=== PATIENT | male | born 1975 | race Two or more races ===

== ENCOUNTER 2018-11-14 10:00 | Emergency (ER) | payer MEDICAID, OTHER ==
[~2018-11-14] VITALS: Ht 167.6 cm; Wt 99.8 kg
[2018-11-14 11:07] LABS: Basophils # (auto) 0.1 uL; Basophils % (auto) 0.7 % (0.0-2.0); Eosinophils # (auto) 0.1 uL; Eosinophils % (auto) 1.9 % (0.0-7.0); Hematocrit 44.3 % (41.0-53.0); Hemoglobin 15.3 g/dL (13.5-17.5); Lymphocytes # (auto) 2.6 uL; Lymphocytes % (auto) 37.6 % (10.0-50.0); Mean Corpuscular Hgb Conc. 34.5 g/dL (32.0-36.0); Mean Corpuscular Volume 86.9 fL (80.0-100.0); Monocytes # (auto) 0.5 uL; Monocytes % (auto) 6.8 % (0.0-12.0); Neutrophils # (auto) 3.6 uL; Nucleated Red Blood Cells % 0.2 %; Platelet Count (auto) 212 10^3/uL (140-450); Red Cell Distribution Width 13.4 % (11.8-14.3); White Blood Cell 6.8 10^3/uL (4.4-10.8)
[2018-11-14 11:32] LABS: Albumin 4.2 g/dL (3.4-5.0); Anion Gap 9 (5-15); Blood Urea Nitrogen 11 mg/dL (7-18); Calcium 9.2 mg/dL (8.5-10.1); Carbon Dioxide 25 mmol/L (21-32); Chloride 106 mmol/L (98-107); Glucose 145 mg/dL (74-106); Potassium 3.9 mmol/L (3.5-5.1); Sodium 140 mmol/L (136-145)
[2018-11-14 11:38] LABS: Alanine Aminotransferase 212 U/L (16-61); Alkaline Phosphatase 167 U/L (45-117); Aspartate Aminotransferase 65 U/L (15-37); BUN/Creatinine Ratio 16.2; Bilirubin, Total 0.5 mg/dL (0.2-1.0); GFR African American 165 mL/min; GFR Non-African American 137 mL/min; Total Protein 7.7 g/dL (6.4-8.2)
[2018-11-14] MEDS ORDERED: ASPirin 81 mg TAB PO ONE (13:00)
[2018-11-14 13:15] VITALS: BP 142/95
[2018-11-14] MEDS ORDERED: ACETAMINOPHEN 325 MG TAB PO ONE (13:15)
== END 2018-11-14 13:40 | disposition home or self-care (01) ==
LOC: EDBD 10:00 → ER 10:07
DX: R07.89 Other chest pain (principal); I10 Essential (primary) hypertension; R51 Headache; R11.2 Nausea with vomiting, unspecified; J45.909 Unspecified asthma, uncomplicated
CPT/HCPCS: 36415; 71046; 80053; 84484; 85025; 93005

== ENCOUNTER 2018-11-29 18:36 | Inpatient (IN) | payer MEDICAID | END 2018-12-02 12:00 | disposition home or self-care (01) | LOC: TELE-WESTW 12-01 18:23 → ER 18:36 → OVERFLOW 22:46 → WEST WING 23:03 | DX: R56.9 Unspecified convulsions (principal); I63.9 Cerebral infarction, unspecified; I10 Essential (primary) hypertension; E66.01 Morbid (severe) obesity due to excess calories; E78.5 Hyperlipidemia, unspecified; E11.9 Type 2 diabetes mellitus without complications ==